=== PATIENT | female | born 1970 | race Caucasian/White ===

== ENCOUNTER 2024-06-24 21:07 | Inpatient (IN) | payer MEDICARE, MEDICAID, SELFPAY ==
--- NOTE | ~2024-06-24 | CT_ITS ---
CT of the Abdomen and Pelvis: Indication: Abdominal pain Technique: 2.5 mm axial scans were obtained through the abdomen and pelvis following intravenous adm inistration of 100 cc of Omnipaque 350. Dose reduction technique was used on this scan by utilizing a utomated exposure control and iterative reconstruction technique. The dose-length product (DLP) was 2 71.35 mGy-cm. Findings: Scans through the lung bases no subcapsular granulomas and bibasilar atelectasis, with min imal right pleural fluid.. The liver, pancreas, adrenals and kidneys are within normal limits. Probable mild gallbladder wall th ickening, nonspecific. Spleen is borderline enlarged, measuring 14 cm in length. No evidence of aorti c aneurysm. No lymphadenopathy. There is pneumoperitoneum. Possible wall thickening of the gastric antrum/duodenum, which may be the source, consider perforated peptic ulcer. Possible minimal wall thickening of the cecum/ascending col on. No bowel obstruction evident. Images through the pelvis were performed. Urinary bladder unremarkable. No pelvic mass seen. No ascit es. Bilateral L5 pars interarticularis defects are present. There are multiple subacute left rib fracture deformities, involving the left sixth-10th ribs. Impression: Pneumoperitoneum, compatible with bowel perforation. This is felt to be most likely related to perfor ated peptic ulcer or other distal gastritis/duodenitis. Correlate clinically. Consider endoscopy. Possible minimal wall thickening cecum/ascending colon. Mild gallbladder wall thickening, nonspecific, possibly reactive. Borderline splenomegaly. Reviewed, dictated and finalized at [facility]. Impression: Pneumoperitoneum, compatible with bowel perforation. This is felt to be most li yusra related to perforated peptic ulcer or other distal gastritis/duodenitis. C orrelate clinically. Consider endoscopy. Possible minimal wall thickening cecum/ascending colon. Mild gallbladder wall thickening, nonspecific, possibly reactive. Borderline splenomegaly.
--- NOTE | ~2024-06-24 | XR_ITS ---
EXAM: XR abdomen gastric tube insert DATE: 06/25/2024 18:03 HISTORY: NG tube . COMPARISON: CT abdomen and pelvis 06/24/2024. FINDINGS: Left basilar consolidation. NG tube, tip and side port over the stomach. Midline surgical sharath. The tip of a vascular catheter projects over the proximal right atrium. Normal bowel gas pat tern. No organomegaly. No abnormal abdominal calcification. Regional bones and soft tissues normal fo r age. IMPRESSION: Left basilar atelectasis/consolidation. NG tube in good position. Reviewed, dictated and finalized at location K.
--- NOTE | ~2024-06-24 | XR_ITS ---
XR chest 1V portable DATE: 06/24/2024 21:41 INDICATION: Cough. History of stage IV breast cancer. TECHNIQUE: Portable AP chest COMPARISON: None FINDINGS: Right Port-A-Cath catheter tip overlies the superior cavoatrial junction. Cardiomegaly. No hilar or mediastinal enlargement. Mild bilateral apical capping. Increased retrocardiac density on the left suggests left lower lobe infiltrate and/or atelectasis. Th ere is mild infiltrate or atelectasis in the right lower lung. No pulmonary vascular congestion or any significant pleural fluid collection or any pneumothorax is n oted. Osteopenia. IMPRESSION: Bilateral lower lung infiltrate or atelectasis is suggested, left greater than right Cardiomegaly Right Port-A-Cath catheter tip situated near superior cavoatrial junction Reviewed, dictated and finalized at location J. IMPRESSION: Bilateral lower lung infiltrate or atelectasis is suggested, left g reater than right Cardiomegaly Right Port-A-Cath catheter tip situated near superior cavoatrial junction
[2024-06-24 21:03] VITALS: BP 103/64; PULSE 73; RESP 22; TEMP 37; O2SAT 93
[2024-06-24 21:28] LABS: Basophils Percent Auto 0.3 % (0.2-1.2); Hematocrit 27.7 % (37.0-47.0); Hemoglobin 8.7 g/dL (12.0-15.0); Immature Granulocyte Absolute 0.19 K/mm3 (0.00-0.031); Immature Granulocyte Percent A 1.2 % (0-0.5); Immature Platelet Fraction Pct 14.1 % (0.9-11.2); Lymphocytes Absolute Auto 0.26 K/mm3 (0.9-3.2); Lymphocytes Percent Auto 1.6 % (18.3-44.2); Mean Corpuscular HGB Conc 31.4 g/dl (32-36); Mean Corpuscular Hemoglobin 27.1 pg (26-34); Mean Corpuscular Volume 86.3 fl (80-100); Mean Platelet Volume 13.8 fl (7.4-10.4); Monocytes Absolute Auto 0.6 K/mm3 (0.1-0.6); Monocytes Percent Auto 3.8 % (2.6-8.5); Neutrophils Absolute Auto 14.8 K/mm3 (1.3-6.7); Neutrophils Percent Auto 93.1 % (45.5-73.1); Nucleated Red Blood Cells Perc 0.1 % (0.0-0.2); Platelet Count Result 84 k/mm3 (150-375); Red Blood Count 3.21 M/mm3 (4.2-5.4); Red Cell Distribution Width 17.8 % (11.5-14.5); White Blood Count 15.9 K/mm3 (4.5-10.0)
--- NOTE | 2024-06-24 21:28 | ECG_ITS ---
Test Date: 2024-06-24 21:37:23 Measurements Intervals [place] Rate: 64 P: 44 NV: 124 QRS: 27 QRSD: 72 T: 49 QT: 376 QTc: 390 Interpretive Statements SINUS RHYTHM NORMAL ELECTROCARDIOGRAM No previous ECG available for comparison Electronically Signed On 06-25-2024 15:32:06 CDT by Josemanuel Slater M.D.
[2024-06-24 21:41] LABS: Alanine Aminotransferase 24 U/L (6-35); Albumin Level 2.7 g/dL (3.5-5.1); Alkaline Phosphatase 98 U/L (38-126); Anion Gap 5 mmol/L (4-12); Aspartate Amino Transferase 23 U/L (14-36); Bilirubin,Total 2.3 mg/dL (0.2-1.3); Blood Urea Nitrogen 18 mg/dL (7-17); Calcium 7.6 mg/dL (8.4-10.2); Carbon Dioxide 30 mmol/L (22-30); Chloride 97 mmol/L (98-107); Estimated CRCL calculation 97 ml/min; Estimated Glomerular Filt Rate > 60; Glucose 133 mg/dL (65-110); Lipase 169 U/L (23-300); Potassium 3.7 mmol/L (3.4-5.0); Sodium 132 mmol/L (137-145)
[2024-06-24] MEDS: SODIUM CHLORIDE 0.9% IV 1,000 ML 999 ML IV CONT (21:50)
[2024-06-24] MEDS: ONDANSETRON INJ 4 MG/2 ML VIAL IV PUSH (21:51)
[2024-06-24] MEDS: MORPHINE SULFATE (*CRX) 4 MG/ML INJ IV PUSH (21:51)
[2024-06-24 21:53] LABS: INR 1.2; Prothrombin Time 15.4 Seconds (11.1-14.7)
[2024-06-24 22:04] LABS: Magnesium 1.9 mg/dL (1.6-2.3)
[2024-06-24 22:09] LABS: Lactic Acid Reflex 1.2 mmol/L (0.7-2.0)
[2024-06-24 22:17] LABS: Troponin I < 0.012 ng/mL (0.000-0.034)
[2024-06-24 22:32] LABS: Procalcitonin 0.2 ng/mL
--- NOTE | 2024-06-24 23:08 | ED.GENADULT ---
HPI - General Adult General Chief complaint: Abdominal Pain Stated complaint: ABDOMINAL PAIN X SEVERAL DAYS Time Seen by Provider: 06/24/24 21:21 History of Present Illness HPI narrative: patient is a 53-year-old female who presents emergency department with chief complaint of abdominal pain. Patient has history of breast cancer with metastatic lesions to the liver and brain patient is still receiving chemotherapy at [facility]. Patient started having severe abdominal pain today and called EMS patient was transported by [facility] to our facility reports pain is not improved by anything and reports that it is not worsened by anything. Related Data Allergies Allergy/AdvReac Type Severity Reaction Status Date / Time Sulfa (Sulfonamide Allergy Rash Verified 06/24/24 21:14 Antibiotics) Review of Systems Review of Systems: A 10 system review of systems was completed on the patient and is negative except for what is stated in the HPI. Nursing and ancillary documentation was reviewed. Exam Narrative: GENERAL: Well-appearing, well-nourished, and in no acute distress. HEAD: Normocephalic, atraumatic. EYES: PERRLA and EOMI. ENT: Nares clear, no rhinorrhea or epistaxis. Mucous membranes moist. NECK: Supple. CHEST: Clear to auscultation. No respiratory distress. HEART: Regular rate and rhythm. No murmur heard. Normal peripheral pulses. ABDOMEN: Soft, Diffusely tender to palpation, nondistended, normal active bowel sounds. EXTREMITIES: Normal range of motion. No edema. SKIN: Warm, dry, no rash. NEURO: No focal deficits. Alert and oriented x3. PSYCH: Normal mood and affect. Course Vital Signs Vital signs: Vital Signs Temperature 37.0 C 06/24/24 21:03 Pulse Rate 73 06/24/24 21:03 Respiratory Rate 22 H 06/24/24 21:03 Blood Pressure 103/64 06/24/24 21:03 Pulse Oximetry 93 06/24/24 21:03 Oxygen Delivery Room Air 06/24/24 21:03 Temperature 37.0 C 06/24/24 21:03 Pulse Rate 70 06/24/24 23:35 Respiratory Rate 12 06/24/24 23:35 Blood Pressure 120/73 06/24/24 23:35 Pulse Oximetry 100 06/24/24 23:35 Oxygen Delivery Nasal Cannula 06/24/24 23:35 Oxygen Flow Rate 2 06/24/24 23:35 Medical Decision Making MDM Narrative Medical decision making narrative: differential diagnosis includes intra-abdominal infection, diverticulitis colitis, testicle perforation. UTI laboratory studies were obtained white count of 15.9 electrolytes showed a lactate of 1.2 bilirubin was 2.3 troponin was negative lipase was negative procalcitonin 0.2 urinalysis showed evidence of UTI CT scan read by [facility] showed free air concerning for perforated viscus the patient was started empirically on Zosyn case was discussed with Dr. Brandon of the general surgery service who will admit the patient and evaluate for possible surgical intervention Vital Signs Vital Signs: Vital Signs Temperature 37.0 C 06/24/24 21:03 Pulse Rate 73 06/24/24 21:03 Respiratory Rate 22 H 06/24/24 21:03 Blood Pressure 103/64 06/24/24 21:03 Pulse Oximetry 93 06/24/24 21:03 Oxygen Delivery Room Air 06/24/24 21:03 Temperature 37.0 C 06/24/24 21:03 Pulse Rate 70 06/24/24 23:35 Respiratory Rate 12 06/24/24 23:35 Blood Pressure 120/73 06/24/24 23:35 Pulse Oximetry 100 06/24/24 23:35 Oxygen Delivery Nasal Cannula 06/24/24 23:35 Oxygen Flow Rate 2 06/24/24 23:35 Lab Data 06/24/24 21:20 06/24/24 21:20 Labs: Lab Results 06/24/24 06/24/24 06/24/24 Range/Units 21:20 21:52 23:34 WBC 15.9 H (4.5-10.0) K/mm3 RBC 3.21 L (4.2-5.4) M/mm3 Hgb 8.7 L (12.0-15.0) g/dL Hct 27.7 L (37.0-47.0) % MCV 86.3 (80-100) fl MCH 27.1 (26-34) pg MCHC 31.4 L (32-36) g/dl RDW 17.8 H (11.5-14.5) % Plt Count 84 L (150-375) k/mm3 MPV 13.8 H (7.4-10.4) fl Immature Gran % (Auto) 1.2 H (0-0.5) % Neut % (Auto)
[2024-06-24] MEDS: HYDROmorphone HCL INJ (*CRX) 1 MG/ML SYR IV PUSH (23:33)
[2024-06-24 23:35] VITALS: BP 120/73; PULSE 70; RESP 12; O2SAT 100
[2024-06-24 23:51] LABS: Add Urine Microscopic? YES; Appearance Urine Cloudy (Clear); Bacteria Urine 4+ /hpf; Bilirubin Urine Negative (Negative); Blood Urine 1+ (Negative); Color Urine Yellow (Yellow); Glucose Urine UA Negative (Negative); Ketones Urine Negative (Negative); Leukocyte Esterase Ur 2+ LEU/UL (Negative); Nitrate Urine Negative (Negative); Protein Urine 1+ mg/dL (Negative); Specific Grav Ur 1.045 (1.001-1.035); Squamous Epithelial Cell Urine None Seen /hpf (Few); WBC Urine >100 /hpf (0-3); pH Urine 6.5 (5.0-9.0)
[2024-06-25] VITALS (25 sets, daily range): BP systolic 98–120; BP diastolic 50–68; PULSE 60–85; RESP 12–94; TEMP 35.9–36.9; O2SAT 93–100; BMI 18.8
[2024-06-25] MEDS: PIPERACILLN/TAZ 3.375GM/NS50ML 3.375 GM/50 ML BAG IVPB ×3 (01:55→20:25)
--- NOTE | 2024-06-25 03:05 | PC.NURSE ---
This patient, Danitza Anderson, was admitted to IMU Room 213-01. Patient/family oriented to hospital policies and general routines including ID bracelet, bed and alarms, visiting hours, pain management, procedures, bathroom and other care routines, personal items, smoking policy, room service/diet, and visiting hours. Information on how to activate the Rapid Response Team has been discussed. Patient/Family are encouraged to report perceived risks to care and to ask questions if they do not understand what they are told or what they should do.
[2024-06-25] MEDS: SODIUM CHLORIDE 0.9% IV 1,000 ML 125 ML IV CONT (03:42)
[2024-06-25 08:37] LABS: Basophils Absolute Auto 0.1 K/mm3 (0.0-0.1); Basophils Percent Auto 0.3 % (0.2-1.2); Eosinophils Absolute Auto 0.2 K/mm3 (0-0.3); Eosinophils Percent Auto 1.3 % (0-4.4); Hematocrit 31.8 % (37.0-47.0); Hemoglobin 9.6 g/dL (12.0-15.0); Immature Granulocyte Absolute 0.16 K/mm3 (0.00-0.031); Immature Granulocyte Percent A 0.9 % (0-0.5); Immature Platelet Fraction Pct 15.6 % (0.9-11.2); Lymphocytes Absolute Auto 0.24 K/mm3 (0.9-3.2); Lymphocytes Percent Auto 1.4 % (18.3-44.2); Mean Corpuscular HGB Conc 30.2 g/dl (32-36); Mean Corpuscular Hemoglobin 27.1 pg (26-34); Mean Corpuscular Volume 89.8 fl (80-100); Monocytes Absolute Auto 0.6 K/mm3 (0.1-0.6); Monocytes Percent Auto 3.3 % (2.6-8.5); Neutrophils Absolute Auto 15.9 K/mm3 (1.3-6.7); Neutrophils Percent Auto 92.8 % (45.5-73.1); Platelet Count Result 79 k/mm3 (150-375); Red Blood Count 3.54 M/mm3 (4.2-5.4); Red Cell Distribution Width 17.8 % (11.5-14.5); White Blood Count 17.2 K/mm3 (4.5-10.0)
--- NOTE | 2024-06-25 08:41 | PM.IMHP ---
H&P: HPI History of Present Illness Date/Time: 06/25/24 08:41 Chief Complaint: Abdominal pain Narrative: This is a 53-year-old woman undergoing treatment for metastatic breast cancer, who was brought into the ED via EMS for abdominal pain x 1 day. The patient is a fair historian and her history is also obtained by discussion with her daughter via phone with the patient's permission. The patient reports having a sudden onset generalized abdominal pain starting yesterday. She denies nausea, vomiting, fever, chills, or any other complaints. She denies having this pain in the past. Due to her progressive pain, she was brought into the ED via EMS for evaluation. [place] [address], hemoglobin 8.7, hematocrit 27.7, platelets 97026, PT 15.4, INR 1.2, sodium 132, BUN 18, creatinine 0.5, lactic acid 1.2, calcium 7.6, total bilirubin 2.3 with other LFTs normal, troponin negative, albumin 2.7, total protein 5.0, procalcitonin 0.2. UA grossly abnormal with urine culture pending. Chest x-ray showed bilateral lower lung infiltrate or atelectasis, cardiomegaly, and right Port-A-Cath tip near superior cavoatrial junction. CT scan of the abdomen and pelvis showed pneumoperitoneum, compatible with bowel perforation. This is felt to be most likely related to perforated gastric ulcer or distal gastritis/duodenitis. Also seen is possible minimal wall thickening of the cecum/ascending colon, mild gallbladder wall thickening that is nonspecific and possibly reactive, and borderline splenomegaly. Our service was consulted by the ED physician and she was admitted in this setting. She was started on IV antibiotics, IV fluids, analgesics, and bowel rest. She is now seen on the medical floor. She is still having generalized abdominal pain improved after the IV morphine. Denies any flatus or bowel movement recently. She cannot recall her last bowel movement, but reports recent constipation. Denies any previous abdominal surgeries. No known history of ulcers. Lifelong nonsmoker. Denies any recent frequent NSAID use. The patient has been undergoing treatment for metastatic breast cancer since 2019. She reports metastasis to her liver and brain. She has been on chemotherapy and receiving infusions every 3 weeks. Her last chemotherapy treatment was about 2 weeks ago. She has a right chest Port-A-Cath in place. She also was hospitalized at [facility] for seizures after having a fall at home that was felt to be related to a seizure. She was found to have advancement of her cancer and brain metastasis, and was discharged home with follow-up with Radiation Oncology. She has had 1 radiation treatment and was scheduled to have radiation again today. During that hospitalization, she was also started on steroids and was discharged on dexamethasone every 6 hours per her daughter. She has been taking the steroids routinely. Over the past few months, she has had a poor appetite and frequent nausea with poor oral intake. The patient believes she has lost about 20 lb in the last few months, and her daughter reports about 30 lb weight loss in the last 3 months. She also reports electrolyte imbalances and starting potassium and magnesium replacement that she has been taking [id number]. I requested nursing verified doses and put this into her home medication list. No labs ordered for this morning, therefore I placed some orders today. She has a type and screen resulted today. Review of Systems Review of Systems: All systems reviewed & are unremarkable except as noted in HPI and below [facility] Past Medical History Medical History Breast cancer metastasized to brain Seizure Surgical History Surgical History No pertinent past surgical history Family History Family History Father Conges
[2024-06-25 08:49] LABS: Anion Gap 4 mmol/L (4-12); Blood Urea Nitrogen 21 mg/dL (7-17); Calcium 7.8 mg/dL (8.4-10.2); Carbon Dioxide 30 mmol/L (22-30); Chloride 100 mmol/L (98-107); Estimated CRCL calculation 89 ml/min; Estimated Glomerular Filt Rate > 60; Glucose 102 mg/dL (65-110); Potassium 3.8 mmol/L (3.4-5.0); Sodium 134 mmol/L (137-145)
[2024-06-25 08:56] LABS: Prealbumin 7.8 mg/dL (17.6-36.0)
[2024-06-25] MEDS: PANTOPRAZOLE SODIUM IV 40 MG VIAL IV PUSH (09:13)
[2024-06-25] MEDS: MORPHINE SULFATE (*CRX) 4 MG/ML INJ IV PUSH (10:27)
--- NOTE | 2024-06-25 11:01 | WPDHPUPDATE1 ---
History and Physical Update Update Date/Time: 06/25/24 11:01 History and Physical has been reviewed, including an updated exam of the patient. There are NO changes in the patient's condition. Risks, benefits, and alternatives have been discussed and questions answered. Patient agrees to proceed with procedure.
--- NOTE | 2024-06-25 11:06 | PC.NURSE ---
To OR via bed, IV patent.
--- NOTE | 2024-06-25 12:18 | WPDANESEPPF ---
Anes - Initial Pre Proc Eval Procedure: Operation Date: 06/25/24 12:30 Proposed Procedures p Exploratory Laparotomy For Bowel Perforation - Mansoor Brandon MD Date/Time: 06/25/24 12:18 Surgeon: Mansoor Brandon MD Pre Op Diagnosis: Intestinal perforation abdominal pain Patient Data Age: 53 Gender: F Height: 1.65 m Weight: 51.4 kg Last Vital Signs Temp 97.2 F L 06/25/24 11:23 Pulse 78 06/25/24 11:23 Resp 16 06/25/24 11:23 BP 104/51 L 06/25/24 11:23 Pulse Ox 94 06/25/24 11:23 O2 Del Method Room Air 06/25/24 11:23 O2 Flow Rate 2 06/25/24 03:30 Allergies Allergy/AdvReac Type Severity Reaction Status Date / Time amoxicillin Allergy Unknown Verified 06/25/24 03:42 Sulfa (Sulfonamide Allergy Rash Verified 06/24/24 21:14 Antibiotics) TB meds Allergy Unknown Uncoded 06/25/24 03:42 Home Medications Medication Instructions Recorded Confirmed Type carvedilol 3.125 mg tablet 3.125 mg PO BID 06/25/24 06/25/24 History cholecalciferol (vitamin D3) 125 125 mcg PO DAILY 06/25/24 06/25/24 History mcg (5,000 unit) capsule levetiracetam 500 mg tablet 1,000 mg PO BID 06/25/24 06/25/24 History lidocaine-prilocaine 2.5 %-2.5 % 1 applic topical QID PRN Mild Pain 06/25/24 06/25/24 History topical cream (Scale Score 1-4) memantine 5 mg tablet 5 mg PO BID 06/25/24 06/25/24 History Laboratory Tests 06/24/24 06/24/24 06/24/24 21:20 21:52 23:34 WBC 15.9 H K/mm3 (4.5-10.0) RBC 3.21 L M/mm3 (4.2-5.4) Hgb 8.7 L g/dL (12.0-15.0) Hct 27.7 L % (37.0-47.0) MCV 86.3 fl (80-100) MCH 27.1 pg (26-34) MCHC 31.4 L g/dl (32-36) RDW 17.8 H % (11.5-14.5) Plt Count 84 L k/mm3 (150-375) MPV 13.8 H fl (7.4-10.4) Immature Gran % (Auto) 1.2 H % (0-0.5) Neut % (Auto) 93.1 H % (45.5-73.1) Lymph % (Auto) 1.6 L % (18.3-44.2) Clinch % (Auto) 3.8 % (2.6-8.5) Eos % (Auto) 0.0 % (0-4.4) Baso % (Auto) 0.3 % (0.2-1.2) Lymph # (Auto) 0.26 L K/mm3 (0.9-3.2) Clinch # (Auto) 0.6 K/mm3 (0.1-0.6) Eos # (Auto) 0.0 K/mm3 (0-0.3) Baso # (Auto) 0.0 K/mm3 (0.0-0.1) Abs Immat Gran (auto) 0.19 H K/mm3 (0.00-0.031) Absolute Neuts (auto) 14.8 H K/mm3 (1.3-6.7) Absolute Nucleated RBC 0.020 H K/mm3 (0.0-0.012) Nucleated RBC % 0.1 % (0.0-0.2) % Immature Plt Fraction 14.1 H % (0.9-11.2) PT 15.4 H Seconds (11.1-14.7) INR 1.2 Sodium 132 L mmol/L (137-145) Potassium 3.7 mmol/L (3.4-5.0) Chloride 97 L mmol/L (98-107) Carbon Dioxide 30 mmol/L (22-30) Anion Gap 5 mmol/L (4-12) BUN 18 H mg/dL (7-17) Creatinine 0.50 L mg/dL (0.7-1.0) Estim Creat Clear Calc 97 ml/min Estimated GFR > 60 (59 - ) Glucose 133 H mg/dL (65-110) Lactic Acid 1.2 mmol/L (0.7-2.0) Calcium 7.6 L mg/dL (8.4-10.2) Magnesium 1.9 mg/dL (1.6-2.3) Total Bilirubin 2.3 H mg/dL (0.2-1.3) AST 23 U/L (14-36) ALT 24 U/L (6-35) Alkaline Phosphatase 98 U/L (38-126) Troponin I < 0.012 ng/mL (0.000-0.034) Total Protein 5.0 L g/dL (6.3-8.2) Albumin 2.7 L g/dL (3.5-5.1) Prealbumin Lipase 169 U/L (23-300) Procalcitonin 0.2 ng/mL Beta HCG, Quant Urine Color Yellow (Yellow) Urine Appearance Cloudy H (Clear) Urine pH 6.5 (5.0-9.0) Ur Specific [place] 1.045 H (1.001-1.035) Urine Protein 1+ H mg/dL (Negative) Urine Glucose (UA) Negative mg/dL (Negative) Urine Ketones Negative mg/dL (Negative) Ur Blood (Man
[2024-06-25 12:39] LABS: Beta HCG Quantitative < 2.39 mIU/ML
--- NOTE | 2024-06-25 12:51 | PC.NURSE ---
Suzy RN from Dr. Pierson's office, reports Dr. Pierson (cell [phone]) would like to do a provider to provider call to Dr. Brandon in regards to radiation treatment after exploratory lap. Reports they would like to keep pt on current radiation schedule despite procedure. Suzy confirms pt is currently taking Dexamethasone 2 mg q 6 hr, however, she us unaware of when pt began this regimen as it was started from provider at [facility]. Reports brain MRI was completed 06/07/2024 and is likely when steroid was started. Previous to hospitalization at [facility] pt was taking Dex 8 mg on day 2 and 3 post radiation tx on a 3 week cycle. Office number for Dr. Orr (Oncologist) is [phone]. Yoli, daughter, reports pt was seen at [facility] for sz and was started on Dexamethasone 2mg q6hr on 06/06/2024. Daughter also reports she discovered she has only been giving pt 500 mg of Keppra vs 1000 mg BID. Pt also takes OTC potassium citrate 99mg BID, magnesium glycinate 100 mg BID.
--- NOTE | 2024-06-25 13:38 | PM.IMCN ---
Assessment and Plan Assessment and plan (1) Seizure: Code(s): R56.9 - Unspecified convulsions Status: Chronic (2) Thrombocytopenia: Code(s): D69.6 - Thrombocytopenia, unspecified Status: Acute (3) Anemia: Code(s): D64.9 - Anemia, unspecified Status: Acute (4) Bowel perforation: Code(s): K63.1 - Perforation of intestine (nontraumatic) Status: Acute (5) Electrolyte abnormality: Code(s): E87.8 - Other disorders of electrolyte and fluid balance, not elsewhere classified Status: Acute (6) Breast cancer metastasized to brain: Code(s): C50.919 - Malignant neoplasm of unspecified site of unspecified female breast; C79.31 - Secondary malignant neoplasm of brain Status: Chronic (7) Duodenal ulcer: Code(s): K26.9 - Duodenal ulcer, unspecified as acute or chronic, without hemorrhage or perforation Status: Acute Plan Danitza Anderson is a 53 year old female who presents to the ED with abdominal pain over the past 1 day. Sudden in onset. No nausea vomiting fever chills. Progressively getting worse. Presented to the ED earlier today for evaluation. Laboratory evaluation showed WBC of 15 K hemoglobin of 8.7 hematocrit 27 platelet of 84,000. Lactic normal. Chem panel with total bilirubin of 2.3 mild hyponatremia 132. Chest x-ray revealed bilateral lower lung infiltrate or atelectasis cardiomegaly and right Port-A-Cath tip near superior cavoatrial junction. CT scan of the abdomen pelvis showed pneumoperitoneum compatible with bowel perforation. [place] to be related to perforated gastric ulcer oral distal gastritis/duodenitis. There was also minimal wall thickening of the cecum/ascending colon mild gallbladder wall thickening which is nonspecific and possibly reactive and borderline splenomegaly. History of metastatic breast cancer since 2019 with metastasis to her liver and brain had been on chemotherapy every 3 weeks. Last chemotherapy about 2 weeks ago. Right chest Port-A-Cath in place. Recently she was admitted with seizures to [facility]. She was found to have worsening metastasis to her brain and had been following up with radiation oncology and received radiation treatment. During that hospitalization she was also started on steroids which she has been taking regularly. Since admission general surgery has been consulted and have been taken to the OR for exploratory laparotomy. Hospitalist team consulted for medical management. Perforated viscus suspected related to gastritis/duodenitis. General surgery on board plan for emergent exploratory laparotomy. To have perforated duodenal ulcer which was stone. Continue current postop orders History of metastatic breast cancer currently undergoing radiation therapy and chemotherapy. Follow-up with Oncology after discharge Seizures on Keppra will be switched to IV while NPO Possible gastritis/duodenitis PPI has been started b.i.d. hold dexamethasone leukocytosis could be reactive however urinalysis was positive for UTI on Zosyn IV follow urine culture. Blood culture in process Thrombocytopenia continue to monitor likely due to chemotherapy Anemia moderate no signs of bleeding. Continue to monitor postoperatively DVT prophylaxis SCDs for now hold Lovenox due to thrombocytopenia Code status full code HPI Date of Consult Consult date: 06/25/24 Requesting Physician: Mansoor Brandon MD Primary Care Provider: Elvis Reza, Consult Narrative Narrative: Danitza Anderson is a 53 year old female who presents to the ED with abdominal pain over the past 1 day. Sudden in onset. No nausea vomiting fever chills. Progressively getting worse. Presented to the ED earlier today for evaluation. Laboratory evaluation showed WBC of 15 K hemoglobin of 8.7 hematocrit 27 platelet of 84,000. Lactic normal. Chem panel with total bilirubin of 2.3 mild hyponatremia 132. Chest x-ray revealed bilateral lowe
[2024-06-25] MEDS: LACTATED RINGERS 1,000 ML 30 ML IV CONT ×2 (14:13)
--- NOTE | 2024-06-25 14:51 | W.PM.PROC2 ---
Procedure Note - Detailed Date of Procedure 06/25/24 Pre-op Diagnosis Bowel perforation Post-op Diagnosis Other (Perforated duodenal ulcer) Procedure Performed Oversew perforated duodenal ulcer, omentoplasty Surgeon Mansoor Brandon MD Outside Installation Machinist Taryn Allen RN Anesthesia General Indications Patient is is receiving chemotherapy for metastatic breast cancer and also radiation therapy for intracranial metastases. She came to our emergency room with abdominal pain and was found to have pneumoperitoneum. The source of the pneumoperitoneum is not clear but is suspected to be a perforated ulcer. She has been on high dose of dexamethasone for quite some time. She is taken to surgery now for exploration for perforated bowel. Findings She had a perforated duodenal ulcer just past the bulb. No other significant findings were noted. Description of Procedure Patient was taken to surgery and induced into general anesthesia. The abdomen is prepped and draped. A midline incision was made and dissection was carried down through the midline fashion into the peritoneal cavity. There was obvious peritoneal green stained fluid in the abdomen. We suctioned this away and then looked at the stomach and the duodenum. The duodenal ulcer was well defined. There was no need for a Kirk maneuver to expose the duodenal ulcer further. Nasogastric tube was positioned appropriately in the stomach. 3-0 silk Lembert sutures were used to over sew the ulcer. We then irrigated and suctioned any residual fluid from the abdomen until the irrigant was removed relatively clear. I then divided some of the omentum so that I had a tension-free piece of healthy omentum. I used mattress sutures of 3-0 Vicryl to secure this omentum to the area on the duodenum where the ulcer had been oversewn. We again inspected the abdomen in and checked for any residual GI spillage. There was none to be found. We then closed the abdomen with running bidirectional 1. PDS suture. A few subcutaneous skin stitches were placed with 3-0 Vicryl. The skin was then closed with sharath. Xeroform gauze fluffs and Medipore tape were used to dress the wound. Patient was awakened, extubated and taken to recovery in good condition. Estimated Blood Loss -5 Urine Output 250 Drains Yes (Nasogastric tube) Packing No Pathology None sent Complications None Condition Stable Disposition PACU [facility] Billing Surgery - Charge Forward: Surgery Billing (Oversew (suture closure) perforated duodenal ulcer, omentoplasty.)
--- NOTE | 2024-06-25 16:10 | PC.NURSE ---
This patient, Danitza Anderson, was received from OR on 06/25/24 at 1610.
[2024-06-25] MEDS: LACTATED RINGERS 1,000 ML 100 ML IV CONT (16:45)
[2024-06-25] MEDS: levETIRAcetam 1000MG/NACL100ML 1,000 MG/100 ML BAG 400 MG IVPB (21:23)
--- NOTE | 2024-06-25 22:45 | PC.NURSE ---
This patient, Danitza Anderson, was transferred to [facility] on 06/25/24 at 2245. Personal belongings sent with patient. Report given to ROLAND Robert. Appropriate documentation sent with patient.
[2024-06-26] MEDS: PIPERACILLN/TAZ 3.375GM/NS50ML 3.375 GM/50 ML BAG IVPB ×4 (02:37→20:14)
[2024-06-26 04:00] VITALS: BP 110/51; PULSE 80; RESP 18; TEMP 36.5; O2SAT 98
[2024-06-26 05:24] LABS: Basophils Percent Auto 0.2 % (0.2-1.2); Hematocrit 28.8 % (37.0-47.0); Hemoglobin 8.7 g/dL (12.0-15.0); Immature Granulocyte Absolute 0.08 K/mm3 (0.00-0.031); Immature Granulocyte Percent A 0.8 % (0-0.5); Immature Platelet Fraction Pct 12.2 % (0.9-11.2); Lymphocytes Absolute Auto 0.36 K/mm3 (0.9-3.2); Lymphocytes Percent Auto 3.4 % (18.3-44.2); Mean Corpuscular HGB Conc 30.2 g/dl (32-36); Mean Corpuscular Hemoglobin 27.2 pg (26-34); Monocytes Absolute Auto 0.4 K/mm3 (0.1-0.6); Monocytes Percent Auto 3.3 % (2.6-8.5); Neutrophils Absolute Auto 9.7 K/mm3 (1.3-6.7); Neutrophils Percent Auto 92.3 % (45.5-73.1); Platelet Count Result 56 k/mm3 (150-375); Red Cell Distribution Width 18.3 % (11.5-14.5); White Blood Count 10.5 K/mm3 (4.5-10.0)
[2024-06-26 05:40] LABS: Alanine Aminotransferase 19 U/L (6-35); Albumin Level 2.3 g/dL (3.5-5.1); Alkaline Phosphatase 84 U/L (38-126); Anion Gap 5 mmol/L (4-12); Aspartate Amino Transferase 21 U/L (14-36); Bilirubin,Total 3.1 mg/dL (0.2-1.3); Blood Urea Nitrogen 21 mg/dL (7-17); Calcium 7.7 mg/dL (8.4-10.2); Carbon Dioxide 30 mmol/L (22-30); Chloride 102 mmol/L (98-107); Estimated CRCL calculation 76 ml/min; Estimated Glomerular Filt Rate > 60; Glucose 106 mg/dL (65-110); Potassium 3.4 mmol/L (3.4-5.0); Sodium 137 mmol/L (137-145)
[2024-06-26 05:44] VITALS: BP 110/51; PULSE 80; RESP 18; TEMP 36.5; O2SAT 98
[2024-06-26 05:54] LABS: Anisocytosis 2+; Ovalocytes 1+; Platelet Estimate Decreased (Adequate)
[2024-06-26 05:55] LABS: Burr Cells 1+; Schistocytes 1+
--- NOTE | 2024-06-26 07:13 | P.PNIM_ITS ---
Progress Note: A&P Assessment and Plan (1) Pneumoperitoneum: Code(s): K66.8 - Other specified disorders of peritoneum Status: Acute (2) Breast cancer metastasized to brain: Code(s): C50.919 - Malignant neoplasm of unspecified site of unspecified female breast; C79.31 - Secondary malignant neoplasm of brain Status: Chronic (3) Anemia: Code(s): D64.9 - Anemia, unspecified Status: Acute (4) Thrombocytopenia: Code(s): D69.6 - Thrombocytopenia, unspecified Status: Acute (5) Malnutrition: Qualifiers: Malnutrition type: protein-calorie malnutrition Protein-calorie malnutrition severity: mild Qualified Code(s): E44.1 - Mild protein-calorie malnutrition Code(s): E46 - Unspecified protein-calorie malnutrition Status: Acute (6) UTI (urinary tract infection): Code(s): N39.0 - Urinary tract infection, site not specified Status: Acute (7) Bacteremia: Code(s): R78.81 - Bacteremia Status: Acute (8) Seizure: Code(s): R56.9 - Unspecified convulsions Status: Chronic (9) Bowel perforation: Code(s): K63.1 - Perforation of intestine (nontraumatic) Status: Acute Plan Pneumoperitoneum/Bowel Perforation * Emergent surgical exploratory laparatomy * secondary to gastric/duodenal ulcer from Chemotherapy/steroid use * Zosyn * Pain control * NPO advance per Surgery * WBC trending down * Antiemetics * Antipyretics * IV fluids * PPI * Accu-Cheks q.6 well NPO * Hypoglycemic protocol * Encourage ambulation Bacteremia * Gram-negative bacilli * Zosyn * de-escalate per cultures * follow-up cultures 48hrs for clearance UTI * Leukocyte+ with bacteria * on zosyn * follow cultures Seizures * Keppra IV unitl tolerating oral intake then transition to home Keppra PO * Seizure precautions * Ativan p.r.n. for seizures Metastatic breast and brain cancer * Currently on chemotherapy * follow-up with oncology outpatient Mild malnutrition due to poor protein and caloric intake * Secondary to metastatic cancer * Dietitian consulted * Recommend protein shakes once patient is tolerating oral intake Anemia/thrombocytopenia * HGb stable * PLT 56 * Likely secondary to patient's metastatic cancer and chemotherapy * Transfuse PRBC <7.0 * Transfuse PLT <20 * Daily CBC Code status: Full code per patient DVT prophylaxis: SCD's (Anemia/thrombocytopenia) Stress ulcer prophylaxis: Protonix 40 daily PT/OT notes: PT/OT Pending Disposition: Patient admitted to the medical unit with pneumoperitoneum post emergent surgical intervention tolerated procedure well eating ice chips at this time bacteremia with Gram-negative bacilli. Will advance diet per surgery return of bowel function. Patient lives at home with daughter who is her finish saw operator. PT OT pending for recs patient is deconditioned may need rehab services before returning home. Time Spent With Patient Time with patient: 15 - 25 minutes Subjective Date/time seen: 06/26/24 07:13 Interval history: Consult: Medical Chart Danitza Anderson is a 53 year old female who presents to the ED with abdominal p ain over the past 1 day. Sudden in onset. No nausea vomiting fever chills. Progressively getting worse. Presented to the ED earlier today for evaluation. Laboratory evaluation showed WBC of 15 K hemoglobin of 8.7 hematocrit 27 platelet of 84,
--- NOTE | 2024-06-26 07:13 | PM.IMPN ---
Progress Note: A&P Assessment and Plan (1) Pneumoperitoneum: Code(s): K66.8 - Other specified disorders of peritoneum Status: Acute (2) Breast cancer metastasized to brain: Code(s): C50.919 - Malignant neoplasm of unspecified site of unspecified female breast; C79.31 - Secondary malignant neoplasm of brain Status: Chronic (3) Anemia: Code(s): D64.9 - Anemia, unspecified Status: Acute (4) Thrombocytopenia: Code(s): D69.6 - Thrombocytopenia, unspecified Status: Acute (5) Malnutrition: Qualifiers: Malnutrition type: protein-calorie malnutrition Protein-calorie malnutrition severity: mild Qualified Code(s): E44.1 - Mild protein-calorie malnutrition Code(s): E46 - Unspecified protein-calorie malnutrition Status: Acute (6) UTI (urinary tract infection): Code(s): N39.0 - Urinary tract infection, site not specified Status: Acute (7) Bacteremia: Code(s): R78.81 - Bacteremia Status: Acute (8) Seizure: Code(s): R56.9 - Unspecified convulsions Status: Chronic (9) Bowel perforation: Code(s): K63.1 - Perforation of intestine (nontraumatic) Status: Acute Plan Pneumoperitoneum/Bowel Perforation Emergent surgical exploratory laparatomy secondary to gastric/duodenal ulcer from Chemotherapy/steroid use Zosyn Pain control NPO advance per Surgery WBC trending down Antiemetics Antipyretics IV fluids PPI Accu-Cheks q.6 well NPO Hypoglycemic protocol Encourage ambulation Bacteremia Gram-negative bacilli Zosyn de-escalate per cultures follow-up cultures 48hrs for clearance UTI Leukocyte+ with bacteria on zosyn follow cultures Seizures Keppra IV unitl tolerating oral intake then transition to home Keppra PO Seizure precautions Ativan p.r.n. for seizures Metastatic breast and brain cancer Currently on chemotherapy follow-up with oncology outpatient Mild malnutrition due to poor protein and caloric intake Secondary to metastatic cancer Dietitian consulted Recommend protein shakes once patient is tolerating oral intake Anemia/thrombocytopenia HGb stable PLT 56 Likely secondary to patient's metastatic cancer and chemotherapy Transfuse PRBC <7.0 Transfuse PLT <20 Daily CBC Code status: Full code per patient DVT prophylaxis: SCD's (Anemia/thrombocytopenia) Stress ulcer prophylaxis: Protonix 40 daily PT/OT notes: PT/OT Pending Disposition: Patient admitted to the medical unit with pneumoperitoneum post emergent surgical intervention tolerated procedure well eating ice chips at this time bacteremia with Gram-negative bacilli. Will advance diet per surgery return of bowel function. Patient lives at home with daughter who is her caster helper. PT OT pending for recs patient is deconditioned may need rehab services before returning home. Time Spent With Patient Time with patient: 15 - 25 minutes Subjective Date/time seen: 06/26/24 07:13 Interval history: Consult: Medical Chart Danitza Anderson is a 53 year old female who presents to the ED with abdominal pain over the past 1 day. Sudden in onset. No nausea vomiting fever chills. Progressively getting worse. Presented to the ED earlier today for evaluation. Laboratory evaluation showed WBC of 15 K hemoglobin of 8.7 hematocrit 27 platelet of 84,000. Lactic normal. Chem panel with total bilirubin of 2.3 mild hyponatremia 132. Chest x-ray revealed bilateral lower lung infiltrate or atelectasis cardiomegaly and right Port-A-Cath tip near superior cavoatrial junction. CT scan of the abdomen pelvis showed pneumoperitoneum compatible with bowel perforation. [place] to be related to perforated gastric ulcer oral distal gastritis/duodenitis. There was also minimal wall thickening of the cecum/ascending colon mild gallbladder wall thickening which is nonspecific and possibly reactive and bord
[2024-06-26 08:00] VITALS: BP 99/42; PULSE 74; RESP 16; TEMP 36.6; O2SAT 96
[2024-06-26] MEDS: PANTOPRAZOLE SODIUM IV 40 MG VIAL IV PUSH (08:58)
[2024-06-26] MEDS: levETIRAcetam 1000MG/NACL100ML 1,000 MG/100 ML BAG 400 MG IVPB ×2 (09:30→21:15)
[2024-06-26 11:58] LABS: Glucose Point of Care 79 mg/dl (65-105)
[2024-06-26 12:00] VITALS: BP 94/42; PULSE 77; RESP 18; TEMP 37.1; O2SAT 96
--- NOTE | 2024-06-26 12:52 | WPDANESPN ---
Anes - Prog Note Post-Op Date/Time: 06/26/24 12:52 Cardiovascular status: normal Respiratory status: normal Airway patency: baseline Mental status: baseline Post-Op hydration status: normal Vital Signs: Last Vital Signs Temp 37.1 C 06/26/24 12:00 Pulse 77 06/26/24 12:00 Resp 18 06/26/24 12:00 BP 94/42 L 06/26/24 12:00 Pulse Ox 96 06/26/24 12:00 O2 Del Method Room Air 06/26/24 08:00 O2 Flow Rate 5 06/25/24 15:00 Pain Score (VAS): 310 I/O: Intake & Output 06/25/24 06/26/24 06/26/24 23:59 07:59 15:59 Intake Total 397 28 3612 Output Total 500 200 Balance -290 -150 1030 Laboratory Tests 06/26/24 04:51 06/26/24 04:51 06/26/24 06/26/24 04:51 11:50 WBC 10.5 H RBC 3.20 L Hgb 8.7 L Hct 28.8 L MCV 90.0 MCH 27.2 MCHC 30.2 L RDW 18.3 H Plt Count 56 L MPV TNP Immature Gran % (Auto) 0.8 H Neut % (Auto) 92.3 H Lymph % (Auto) 3.4 L [place] % (Auto) 3.3 Eos % (Auto) 0.0 Baso % (Auto) 0.2 Lymph # (Auto) 0.36 L [place] # (Auto) 0.4 Eos # (Auto) 0.0 Baso # (Auto) 0.0 Abs Immat Gran (auto) 0.08 H Absolute Neuts (auto) 9.7 H Absolute Nucleated RBC 0.000 Nucleated RBC % 0.0 Platelet Estimate Decreased % Immature Plt Fraction 12.2 H Anisocytosis 2+ Ovalocytes 1+ Lasha Cells 1+ Schistocytes 1+ Sodium 137 Potassium 3.4 Chloride 102 Carbon Dioxide 30 Anion Gap 5 BUN 21 H Creatinine 0.60 L Estim Creat Clear Calc 76 Estimated GFR > 60 Glucose 106 POC Capillary Glucose 79 Calcium 7.7 L Total Bilirubin 3.1 H AST 21 ALT 19 Alkaline Phosphatase 84 Total Protein 5.0 L Albumin 2.3 L Microbiology 06/25/24 04:15 Blood Blood Culture - Preliminary Gram negative bacilli isolated 06/25/24 04:15 Blood Blood Culture - Preliminary Gram negative bacilli isolated 06/25/24 02:02 Blood Blood Culture - Preliminary Gram negative bacilli isolated 06/25/24 02:02 Blood Blood Culture - Preliminary Gram negative bacilli isolated Post-procedural complaints: none Patient Feedback: Patient satisfied with anesthetic care.
[2024-06-26 13:09] LABS: Partial Thromboplastin Time 43.1 Seconds (22.3-36.8)
[2024-06-26 13:10] LABS: Transferrin 191 mg/dL (206-381)
[2024-06-26] MEDS: FAT EMULSIONS IV 20% 250 ML 20.83 ML IVPB (13:51)
[2024-06-26] MEDS: AMINO ACIDS 5%/D15W/E-LYTES/CA 2,000 ML with MULTIVITAMINS-12 INJ VIAL 1 2.5 ML, MULTIV... 40 ML IV CONT (13:51)
[2024-06-26] MEDS: CENTRAL LINE FLUSH 10 ML IV PUSH ×2 (13:51→20:14)
[2024-06-26 13:57] VITALS: BMI 20.8
[2024-06-26 16:00] VITALS: BP 102/47; PULSE 78; RESP 18; TEMP 37.1; O2SAT 93
[2024-06-26] MEDS: HYDROCORTISONE SODIUM SUCCINATE 100 MG/2 ML VIAL IV PUSH ×2 (16:18→20:14)
--- NOTE | 2024-06-26 17:16 | PC.NURSE ---
Per deedee Perea to access port-a-cath to begin TPN. Accessed at 1240 and TPN and lipids started
--- NOTE | 2024-06-26 18:11 | PM.PNGS ---
Progress Note: A&P Assessment and Plan (1) Bowel perforation: Code(s): K63.1 - Perforation of intestine (nontraumatic) Status: Acute Assessment and Plan: Found to have a perforated duodenal ulcer s/p oversewing, omentoplasty. She is doing well POD1. Continue NG tube decompression, bowel rest, and IV fluids. Continue IV antibiotics. (2) Breast cancer metastasized to brain: Code(s): C50.919 - Malignant neoplasm of unspecified site of unspecified female breast; C79.31 - Secondary malignant neoplasm of brain Status: Chronic Assessment and Plan: I spoke with her Radiation Oncologist at [facility], Dr. Pierson. We would expect the patient to be hospitalized for at least a week, and while she is admitted here, it would prolong her radiation therapy she recently started for her brain metastasis. Per her Radiation Oncologist, this has progressed quickly and he feels it would be beneficial to get her transferred to [facility] where she could recover from surgery and also receive radiation while inpatient. If she is not able to be transferred this would be put off for almost two weeks. I called the [facility] transfer line and initiated transfer today. They were unable to transfer to [facility], because they would be transferring the patient off campus to [facility] via ambulance daily for the treatment and then back to inpatient at [facility]. The Hospitalist felt this would not be appropriate in the postop setting and she would be better served at [facility] where she could received radiation therapy in-house. Therefore, we attempted transfer to [place] and I spoke with the Oncologist, who agrees with transfer and accepted the patient. Surgery has also accepted the patient in consultation to follow her in the postoperative period. She is now waiting for bed placement. 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 Will start IV steroids given her recent high-dose steroid use for her brain metastasis so that they will not be abruptly stopped. (5) Seizure: Code(s): R56.9 - Unspecified convulsions Status: Chronic Assessment and Plan: Keppra changed to IV (6) Malnutrition: Qualifiers: Malnutrition type: protein-calorie malnutrition Protein-calorie malnutrition severity: mild Qualified Code(s): E44.1 - Mild protein-calorie malnutrition Code(s): E46 - Unspecified protein-calorie malnutrition Status: Acute Assessment and Plan: Dietitian consulted and agreed with TPN. Will access her Port and start TPN today while awaiting transfer. (7) Thrombocytopenia: Code(s): D69.6 - Thrombocytopenia, unspecified Status: Acute Assessment and Plan: Platelets lower again today to 59k. Will repeat labs tomorrow. (8) Anemia: Code(s): D64.9 - Anemia, unspecified Status: Acute Assessment and Plan: Hgb stable (9) Failure to thrive: Status: Acute Plan I have discussed the patient's case and plan of care with Dr. Brandon. Subjective Subjective Date/Time Seen: 06/26/24 14:11 Post Op day: 1 (Oversew perforated duoenal ulcer, omentplasty) Patient reports: feels better, pain is less, no flatus, no bowel movement and afebrile Interval history: Patient with NG tube in place. Reports abdominal pain is better today since surgery. No nausea. Feeling hungry. No other complaints at this time. Exam Const: General: comfortable and no acute distress Orientation/consciousness: patient oriented x3 GI: Inspection: incision (dressing dry and intact) and other (less distended today) GI Palp: Yes Soft to palpation, Yes Tenderness to palpation present (GI) (incisional) and No Guarding due to palpation
[2024-06-26 18:35] LABS: Glucose Point of Care 155 mg/dl (65-105)
[2024-06-26 20:00] VITALS: BP 105/52; PULSE 74; RESP 18; TEMP 36.6; O2SAT 93
[2024-06-27] VITALS (7 sets, daily range): BP systolic 102–129; BP diastolic 48–63; PULSE 69–84; RESP 16–18; TEMP 36.4–36.9; O2SAT 94–97
[2024-06-27] MEDS: PIPERACILLN/TAZ 3.375GM/NS50ML 3.375 GM/50 ML BAG IVPB ×4 (02:35→20:19)
[2024-06-27] MEDS: HYDROCORTISONE SODIUM SUCCINATE 100 MG/2 ML VIAL IV PUSH ×4 (02:35→20:19)
[2024-06-27 02:41] LABS: Glucose Point of Care 197 mg/dl (65-105)
[2024-06-27 06:08] LABS: Glucose Point of Care 169 mg/dl (65-105)
[2024-06-27 06:20] LABS: Hematocrit 26.2 % (37.0-47.0); Hemoglobin 7.9 g/dL (12.0-15.0); Immature Platelet Fraction Pct 10.2 % (0.9-11.2); Mean Corpuscular HGB Conc 30.2 g/dl (32-36); Mean Corpuscular Hemoglobin 27.1 pg (26-34); Mean Corpuscular Volume 89.7 fl (80-100); Platelet Count Result 58 k/mm3 (150-375); Red Blood Count 2.92 M/mm3 (4.2-5.4); White Blood Count 8.5 K/mm3 (4.5-10.0)
[2024-06-27 06:31] LABS: Triglycerides 60 mg/dL (<150)
--- NOTE | 2024-06-27 07:16 | P.PNIM_ITS ---
Progress Note: A&P Assessment and Plan (1) Pneumoperitoneum: Code(s): K66.8 - Other specified disorders of peritoneum Status: Acute (2) Breast cancer metastasized to brain: Code(s): C50.919 - Malignant neoplasm of unspecified site of unspecified female breast; C79.31 - Secondary malignant neoplasm of brain Status: Chronic (3) Anemia: Code(s): D64.9 - Anemia, unspecified Status: Acute (4) Thrombocytopenia: Code(s): D69.6 - Thrombocytopenia, unspecified Status: Acute (5) Malnutrition: Qualifiers: Malnutrition type: protein-calorie malnutrition Protein-calorie malnutrition severity: mild Qualified Code(s): E44.1 - Mild protein-calorie malnutrition Code(s): E46 - Unspecified protein-calorie malnutrition Status: Acute (6) UTI (urinary tract infection): Code(s): N39.0 - Urinary tract infection, site not specified Status: Acute (7) Bacteremia: Code(s): R78.81 - Bacteremia Status: Acute (8) Seizure: Code(s): R56.9 - Unspecified convulsions Status: Chronic (9) Bowel perforation: Code(s): K63.1 - Perforation of intestine (nontraumatic) Status: Acute Plan Pneumoperitoneum/Bowel Perforation * Emergent surgical exploratory laparatomy * secondary to gastric/duodenal ulcer from Chemotherapy/steroid use * Zosyn * Pain control * NPO advance per Surgery * IS ordered * WBC trending down * Antiemetics * Antipyretics * IV fluids * PPI * Accu-Cheks q.6 well NPO * Hypoglycemic protocol * Encourage ambulation Bacteremia * Gram-negative bacilli, Ecoli growing * Zosyn * de-escalate per cultures * Repeated blood cultures today UTI * Leukocyte+ with bacteria * on zosyn * follow cultures Seizures * Keppra IV unitl tolerating oral intake then transition to home Keppra PO * Seizure precautions * Ativan p.r.n. for seizures Metastatic breast and brain cancer * Currently on chemotherapy * follow-up with oncology outpatient Mild malnutrition due to poor protein and caloric intake * Secondary to metastatic cancer * Dietitian consulted * Recommend protein shakes once patient is tolerating oral intake Anemia/thrombocytopenia * HGb stable * PLT 56 * Likely secondary to patient's metastatic cancer and chemotherapy * MCHC low, iron deficiency may be contributing. TIBC and Iron added to am labs * Transfuse PRBC <7.0 * Transfuse PLT <20 * Daily CBC Code status: Full code per patient DVT prophylaxis: SCD's (Anemia/thrombocytopenia) Stress ulcer prophylaxis: Protonix 40 daily PT/OT notes: PT/OT Pending Disposition: Patient admitted to the medical unit with pneumoperitoneum post emergent surgical intervention tolerated procedure well eating ice chips at this time bacteremia with Gram-negative bacilli. Will advance diet per surgery return of bowel function. Patient lives at home with daughter who is her station mechanic helper. PT OT pending for recs patient is deconditioned may need rehab services before returning home. Patient is pending transfer to [facility] as she needs to continue her radiation for her brain tumor. Surgery initiated this transfer and we are awaiting bed placement. Subjective Date/time seen: 06/27/24 07:16 Interval history: Consult: Medical Chart Danitza Anderson is a 53 year old female who presents to the ED with abdominal pain over the past 1 day. Sudden in o
--- NOTE | 2024-06-27 07:16 | PM.IMPN ---
Progress Note: A&P Assessment and Plan (1) Pneumoperitoneum: Code(s): K66.8 - Other specified disorders of peritoneum Status: Acute (2) Breast cancer metastasized to brain: Code(s): C50.919 - Malignant neoplasm of unspecified site of unspecified female breast; C79.31 - Secondary malignant neoplasm of brain Status: Chronic (3) Anemia: Code(s): D64.9 - Anemia, unspecified Status: Acute (4) Thrombocytopenia: Code(s): D69.6 - Thrombocytopenia, unspecified Status: Acute (5) Malnutrition: Qualifiers: Malnutrition type: protein-calorie malnutrition Protein-calorie malnutrition severity: mild Qualified Code(s): E44.1 - Mild protein-calorie malnutrition Code(s): E46 - Unspecified protein-calorie malnutrition Status: Acute (6) UTI (urinary tract infection): Code(s): N39.0 - Urinary tract infection, site not specified Status: Acute (7) Bacteremia: Code(s): R78.81 - Bacteremia Status: Acute (8) Seizure: Code(s): R56.9 - Unspecified convulsions Status: Chronic (9) Bowel perforation: Code(s): K63.1 - Perforation of intestine (nontraumatic) Status: Acute Plan Pneumoperitoneum/Bowel Perforation Emergent surgical exploratory laparatomy secondary to gastric/duodenal ulcer from Chemotherapy/steroid use Zosyn Pain control NPO advance per Surgery IS ordered WBC trending down Antiemetics Antipyretics IV fluids PPI Accu-Cheks q.6 well NPO Hypoglycemic protocol Encourage ambulation Bacteremia Gram-negative bacilli, Ecoli growing Zosyn de-escalate per cultures Repeated blood cultures today UTI Leukocyte+ with bacteria on zosyn follow cultures Seizures Keppra IV unitl tolerating oral intake then transition to home Keppra PO Seizure precautions Ativan p.r.n. for seizures Metastatic breast and brain cancer Currently on chemotherapy follow-up with oncology outpatient Mild malnutrition due to poor protein and caloric intake Secondary to metastatic cancer Dietitian consulted Recommend protein shakes once patient is tolerating oral intake Anemia/thrombocytopenia HGb stable PLT 56 Likely secondary to patient's metastatic cancer and chemotherapy MCHC low, iron deficiency may be contributing. TIBC and Iron added to am labs Transfuse PRBC <7.0 Transfuse PLT <20 Daily CBC Code status: Full code per patient DVT prophylaxis: SCD's (Anemia/thrombocytopenia) Stress ulcer prophylaxis: Protonix 40 daily PT/OT notes: PT/OT Pending Disposition: Patient admitted to the medical unit with pneumoperitoneum post emergent surgical intervention tolerated procedure well eating ice chips at this time bacteremia with Gram-negative bacilli. Will advance diet per surgery return of bowel function. Patient lives at home with daughter who is her bill clerk. PT OT pending for recs patient is deconditioned may need rehab services before returning home. Patient is pending transfer to [facility] as she needs to continue her radiation for her brain tumor. Surgery initiated this transfer and we are awaiting bed placement. Subjective Date/time seen: 06/27/24 07:16 Interval history: Consult: Medical Chart Danitza Anderson is a 53 year old female who presents to the ED with abdominal pain over the past 1 day. Sudden in onset. No nausea vomiting fever chills. Progressively getting worse. Presented to the ED earlier today for evaluation. Laboratory evaluation showed WBC of 15 K hemoglobin of 8.7 hematocrit 27 platelet of 84,000. Lactic normal. Chem panel with total bilirubin of 2.3 mild hyponatremia 132. Chest x-ray revealed bilateral lower lung infiltrate or atelectasis cardiomegaly and right Port-A-Cath tip near superior cavoatrial junction. CT scan of the abdomen pelvis showed pneumoperitoneum compatible with bowel perforation. [place] to be related to perfor
[2024-06-27] MEDS: PANTOPRAZOLE SODIUM IV 40 MG VIAL IV PUSH (08:11)
[2024-06-27] MEDS: levETIRAcetam 1000MG/NACL100ML 1,000 MG/100 ML BAG 400 MG IVPB ×2 (08:38→21:36)
--- NOTE | 2024-06-27 10:00 | PM.PNGS ---
Progress Note: A&P Assessment and Plan (1) Bowel perforation: Code(s): K63.1 - Perforation of intestine (nontraumatic) Status: Acute Assessment and Plan: Found to have a perforated duodenal ulcer s/p oversewing, omentoplasty. Awaiting return of bowel function. Continue NG tube decompression, bowel rest, and TPN. Continue IV antibiotics. (2) Breast cancer metastasized to brain: Code(s): C50.919 - Malignant neoplasm of unspecified site of unspecified female breast; C79.31 - Secondary malignant neoplasm of brain Status: Chronic Assessment and Plan: Accepted at [facility] and awaiting bed placement, which would allow her to have inpatient radiation for her brain metasasis. Discussed with patient. If she becomes stable for discharge prior to getting a bed at [facility], then she would just follow-up with her Radiation Oncologist and continue radiation as an outpatient. (3) Immunosuppression due to drug therapy: Code(s): D84.821 - Immunodeficiency due to drugs; Z79.899 - Other senior living (current) drug therapy Status: Acute (4) Steroid long-term use: Status: Acute Assessment and Plan: Continue IV steroids for now (5) Seizure: Code(s): R56.9 - Unspecified convulsions Status: Chronic Assessment and Plan: Keppra changed to IV. Seizure precautions. No issues. (6) Malnutrition: Qualifiers: Malnutrition type: protein-calorie malnutrition Protein-calorie malnutrition severity: mild Qualified Code(s): E44.1 - Mild protein-calorie malnutrition Code(s): E46 - Unspecified protein-calorie malnutrition Status: Acute Assessment and Plan: Will increase her TPN to 50 mL/hr (7) Thrombocytopenia: Code(s): D69.6 - Thrombocytopenia, unspecified Status: Acute Assessment and Plan: Platelets still 58,000. Monitor labs (8) Anemia: Code(s): D64.9 - Anemia, unspecified Status: Acute Assessment and Plan: Hgb slowly trending down over the last two days, hemoglobin 7.9 today. Repeat labs tomorrow. (9) Failure to thrive: Status: Acute Plan I have discussed the patient's case and plan of care with Dr. Brandon. Subjective Subjective Date/Time Seen: 06/27/24 10:00 Post Op day: 2 (Over sew perforated duodenal ulcer, omentoplasty) Patient reports: no new complaints, voiding w/o difficulty, no flatus, no bowel movement and afebrile Interval history: Patient denies any abdominal pain or nausea. NG still in place. NG noted to have bright red output in the tubing, but canister appears to have clear yellow/light brown output it. NG suction on high continuous suction, which I turned down while at the bedside. Patient has been up to the bedside commode, but no ambulating or getting up to the chair since admission. PT OT ordered yesterday. Patient does report hunger. About an hour after seeing the patient, I returned to the bedside to reassess the NG tube which was no longer bright red drainage in the tubing. More of a clear pink/yellow. Instructed nursing to monitor and call if bleeding returns. Exam Const: General: comfortable and no acute distress Orientation/consciousness: patient oriented x3 GI: Inspection: distended and incision (Dry and sharath intact, no erythema) GI Palp: Yes Soft to palpation, Yes Tenderness to palpation present (GI) (Mild tenderness along the right side of her abdomen), No Guarding due to palpation present (GI), Yes No hepatosplenomegaly present and No Rebound tenderness present Auscultation: Hypoactive bowel sounds present Skin: General skin exam: pallor Extrem: General: no calf tenderness and no edema Objective Data Vital Signs Vital Signs: Vital Signs - 24 hr 06/26/24 12:00 06/26/24 16:00 06/26/24 20:00 Temperature 98.7 F 98.7 F 97.8 F Pulse Rate 77 78 74 Respiratory Rate 18 18 18 Blood Pressure 94/42 L 102/47 L 105/52 L Pulse Oximetry 96 93 93 Oxygen Megan
[2024-06-27 10:33] LABS: Iron 56 ug/dL (37-170)
[2024-06-27 10:46] LABS: Percent Iron Saturation 21 % (20-50)
[2024-06-27 12:07] LABS: Glucose Point of Care 172 mg/dl (65-105)
--- NOTE | 2024-06-27 13:14 | PCPTNOTE ---
Therapist attempted evaluation at 1255 and then patient took a phone call. Therapist checked back a few minutes later and patient was still on the phone, asked if patient would like her to come back later and she nodded.
[2024-06-27] MEDS: FAT EMULSIONS IV 20% 250 ML 20.83 ML IVPB (13:43)
[2024-06-27] MEDS: AMINO ACIDS 5%/D15W/E-LYTES/CA 2,000 ML with MULTIVITAMINS-12 INJ VIAL 1 2.5 ML, MULTIV... 40 ML IV CONT (13:45)
[2024-06-27] MEDS: CENTRAL LINE FLUSH 10 ML IV PUSH (13:47)
[2024-06-27 15:26] LABS: Anion Gap 5 mmol/L (4-12); Blood Urea Nitrogen 25 mg/dL (7-17); Carbon Dioxide 31 mmol/L (22-30); Chloride 102 mmol/L (98-107); Estimated CRCL calculation 92 ml/min; Estimated Glomerular Filt Rate > 60; Glucose 170 mg/dL (65-110); Phosphorus 1.8 mg/dL (2.5-4.5); Sodium 138 mmol/L (137-145)
[2024-06-27] MEDS: KCL 40 MEQ/WATER 100 ML 100 ML 25 ML IVPB (16:05)
[2024-06-27 18:01] LABS: Glucose Point of Care 180 mg/dl (65-105)
[2024-06-28 00:25] VITALS: BP 117/52; PULSE 78; RESP 16; TEMP 36.8; O2SAT 94
[2024-06-28] MEDS: PIPERACILLN/TAZ 3.375GM/NS50ML 3.375 GM/50 ML BAG IVPB ×4 (01:35→19:46)
[2024-06-28] MEDS: HYDROCORTISONE SODIUM SUCCINATE 100 MG/2 ML VIAL IV PUSH ×2 (02:58→09:54)
[2024-06-28 04:03] LABS: Glucose Point of Care 171 mg/dl (65-105)
[2024-06-28 05:55] VITALS: BP 115/53; PULSE 74; RESP 16; TEMP 36.7; O2SAT 94
[2024-06-28 06:50] LABS: Basophils Percent Auto 0.2 % (0.2-1.2); Hematocrit 23.1 % (37.0-47.0); Immature Granulocyte Percent A 1.8 % (0-0.5); Immature Platelet Fraction Pct 10.8 % (0.9-11.2); Lymphocytes Absolute Auto 0.23 K/mm3 (0.9-3.2); Lymphocytes Percent Auto 4.1 % (18.3-44.2); Mean Corpuscular HGB Conc 29.9 g/dl (32-36); Mean Corpuscular Hemoglobin 27.2 pg (26-34); Mean Corpuscular Volume 90.9 fl (80-100); Mean Platelet Volume 14.3 fl (7.4-10.4); Monocytes Absolute Auto 0.3 K/mm3 (0.1-0.6); Monocytes Percent Auto 4.5 % (2.6-8.5); Neutrophils Percent Auto 89.4 % (45.5-73.1); Nucleated Red Blood Cells Perc 0.4 % (0.0-0.2); Platelet Count Result 51 k/mm3 (150-375); Red Blood Count 2.54 M/mm3 (4.2-5.4); Red Cell Distribution Width 19.4 % (11.5-14.5); White Blood Count 5.6 K/mm3 (4.5-10.0)
[2024-06-28 07:03] LABS: Alanine Aminotransferase 21 U/L (6-35); Albumin Level 2.1 g/dL (3.5-5.1); Alkaline Phosphatase 73 U/L (38-126); Anion Gap 3 mmol/L (4-12); Aspartate Amino Transferase 23 U/L (14-36); Bilirubin,Total 1.6 mg/dL (0.2-1.3); Blood Urea Nitrogen 22 mg/dL (7-17); Calcium 7.8 mg/dL (8.4-10.2); Carbon Dioxide 31 mmol/L (22-30); Chloride 103 mmol/L (98-107); Estimated CRCL calculation 113 ml/min; Estimated Glomerular Filt Rate > 60; Glucose 139 mg/dL (65-110); Magnesium 2.1 mg/dL (1.6-2.3); Potassium 3.1 mmol/L (3.4-5.0); Sodium 137 mmol/L (137-145)
[2024-06-28 07:37] LABS: Hemoglobin 6.9 g/dL (12.0-15.0)
[2024-06-28 07:38] LABS: Anisocytosis 1+; Hypochromasia 1+; Ovalocytes 1+; Platelet Estimate Decreased (Adequate); Poikilocytosis 1+; Schistocytes None Seen
--- NOTE | 2024-06-28 07:59 | P.PNIM_ITS ---
Progress Note: A&P Assessment and Plan (1) Pneumoperitoneum: Code(s): K66.8 - Other specified disorders of peritoneum Status: Acute (2) Breast cancer metastasized to brain: Code(s): C50.919 - Malignant neoplasm of unspecified site of unspecified female breast; C79.31 - Secondary malignant neoplasm of brain Status: Chronic (3) Anemia: Code(s): D64.9 - Anemia, unspecified Status: Acute (4) Thrombocytopenia: Code(s): D69.6 - Thrombocytopenia, unspecified Status: Acute (5) Malnutrition: Qualifiers: Malnutrition type: protein-calorie malnutrition Protein-calorie malnutrition severity: mild Qualified Code(s): E44.1 - Mild protein-calorie malnutrition Code(s): E46 - Unspecified protein-calorie malnutrition Status: Acute (6) UTI (urinary tract infection): Code(s): N39.0 - Urinary tract infection, site not specified Status: Acute (7) Bacteremia: Code(s): R78.81 - Bacteremia Status: Acute (8) Seizure: Code(s): R56.9 - Unspecified convulsions Status: Chronic (9) Bowel perforation: Code(s): K63.1 - Perforation of intestine (nontraumatic) Status: Acute Plan Pneumoperitoneum/Bowel Perforation * Emergent surgical exploratory laparatomy * secondary to gastric/duodenal ulcer from Chemotherapy/steroid use * Zosyn * Pain control * NPO advance per Surgery * IS ordered * Leukocytosis resolved * Antiemetics * Antipyretics * TPN * PPI * Accu-Cheks q.6 well NPO * Hypoglycemic protocol * Encourage ambulation Bacteremia * Gram-negative bacilli, E-coli growing * Zosyn * de-escalate per cultures. Cobb sensitive. Can consider de-escalation to Rocephin. Defer to surgery. * Repeated blood cultures 06/28 with NGTD UTI * Leukocyte+ with bacteria * on Zosyn * follow cultures--growing E-coli, pansensitive Seizures * Keppra IV until tolerating oral intake then transition to home Keppra PO * Seizure precautions * Ativan p.r.n. for seizures Metastatic breast and brain cancer * Currently on chemotherapy * follow-up with oncology outpatient * On IV solu-cortef 100 mg every 6 hours Mild malnutrition due to poor protein and caloric intake; Electrolyte imbalance * Secondary to metastatic cancer * Dietitian consulted * Recommend protein shakes once patient is tolerating oral intake * Daily CMP * Potassium 3.1 meq, Phosphorus 2.0, Mag 2.1. Potassium phosphorus 40 millimoles x1 Anemia/thrombocytopenia * HGb stable * PLT 56 * Likely secondary to patient's metastatic cancer and chemotherapy * MCHC low, iron deficiency may be contributing. TIBC and Iron added to am labs * Transfuse PRBC <7.0 * Transfuse PLT <20 * Daily CBC * Hgb 6.9 g/dL today, transfuse 1 unit of pRBC---may end up declining Code status: Full code per patient DVT prophylaxis: SCD's (Anemia/thrombocytopenia) Stress ulcer prophylaxis: Protonix 40 daily PT/OT notes: PT/OT Pending Disposition: Patient admitted to the medical unit with pneumoperitoneum post emergent surgical intervention tolerated procedure well eating ice chips at this time bacteremia with Gram-negative bacilli. Will advance diet per surgery return of bowel function. Patient lives at home with daughter who is her therapy technician. PT OT pending for recs patient is deconditioned may need rehab services before returning home. Patient is pending transfer to [facility] as she needs to continue her ra
--- NOTE | 2024-06-28 07:59 | PM.IMPN ---
Progress Note: A&P Assessment and Plan (1) Pneumoperitoneum: Code(s): K66.8 - Other specified disorders of peritoneum Status: Acute (2) Breast cancer metastasized to brain: Code(s): C50.919 - Malignant neoplasm of unspecified site of unspecified female breast; C79.31 - Secondary malignant neoplasm of brain Status: Chronic (3) Anemia: Code(s): D64.9 - Anemia, unspecified Status: Acute (4) Thrombocytopenia: Code(s): D69.6 - Thrombocytopenia, unspecified Status: Acute (5) Malnutrition: Qualifiers: Malnutrition type: protein-calorie malnutrition Protein-calorie malnutrition severity: mild Qualified Code(s): E44.1 - Mild protein-calorie malnutrition Code(s): E46 - Unspecified protein-calorie malnutrition Status: Acute (6) UTI (urinary tract infection): Code(s): N39.0 - Urinary tract infection, site not specified Status: Acute (7) Bacteremia: Code(s): R78.81 - Bacteremia Status: Acute (8) Seizure: Code(s): R56.9 - Unspecified convulsions Status: Chronic (9) Bowel perforation: Code(s): K63.1 - Perforation of intestine (nontraumatic) Status: Acute Plan Pneumoperitoneum/Bowel Perforation Emergent surgical exploratory laparatomy secondary to gastric/duodenal ulcer from Chemotherapy/steroid use Zosyn Pain control NPO advance per Surgery IS ordered Leukocytosis resolved Antiemetics Antipyretics TPN PPI Accu-Cheks q.6 well NPO Hypoglycemic protocol Encourage ambulation Bacteremia Gram-negative bacilli, E-coli growing Zosyn de-escalate per cultures. Cobb sensitive. Can consider de-escalation to Rocephin. Defer to surgery. Repeated blood cultures 06/28 with NGTD UTI Leukocyte+ with bacteria on Zosyn follow cultures--growing E-coli, pansensitive Seizures Keppra IV until tolerating oral intake then transition to home Keppra PO Seizure precautions Ativan p.r.n. for seizures Metastatic breast and brain cancer Currently on chemotherapy follow-up with oncology outpatient On IV solu-cortef 100 mg every 6 hours Mild malnutrition due to poor protein and caloric intake; Electrolyte imbalance Secondary to metastatic cancer Dietitian consulted Recommend protein shakes once patient is tolerating oral intake Daily CMP Potassium 3.1 meq, Phosphorus 2.0, Mag 2.1. Potassium phosphorus 40 millimoles x1 Anemia/thrombocytopenia HGb stable PLT 56 Likely secondary to patient's metastatic cancer and chemotherapy MCHC low, iron deficiency may be contributing. TIBC and Iron added to am labs Transfuse PRBC <7.0 Transfuse PLT <20 Daily CBC Hgb 6.9 g/dL today, transfuse 1 unit of pRBC---may end up declining Code status: Full code per patient DVT prophylaxis: SCD's (Anemia/thrombocytopenia) Stress ulcer prophylaxis: Protonix 40 daily PT/OT notes: PT/OT Pending Disposition: Patient admitted to the medical unit with pneumoperitoneum post emergent surgical intervention tolerated procedure well eating ice chips at this time bacteremia with Gram-negative bacilli. Will advance diet per surgery return of bowel function. Patient lives at home with daughter who is her owner spa director. PT OT pending for recs patient is deconditioned may need rehab services before returning home. Patient is pending transfer to [facility] as she needs to continue her radiation for her brain tumor. Surgery initiated this transfer and we are awaiting bed placement. Subjective Date/time seen: 06/28/24 07:59 Interval history: Consult: Medical Chart Danitza Anderson is a 53 year old female who presents to the ED with abdominal pain over the past 1 day. Sudden in onset. No nausea vomiting fever chills. Progressively getting worse. Presented to the ED earlier today for evaluation. Laboratory evaluation showed WBC of 15 K hemoglobin of 8.7 hematocrit 27 platelet of 84,
[2024-06-28] MEDS: PANTOPRAZOLE SODIUM IV 40 MG VIAL IV PUSH (09:54)
[2024-06-28] MEDS: levETIRAcetam 1000MG/NACL100ML 1,000 MG/100 ML BAG 400 MG IVPB ×2 (09:54→20:27)
[2024-06-28 09:55] VITALS: BP 114/61; PULSE 85; RESP 16; TEMP 36.5; O2SAT 98
[2024-06-28 10:02] LABS: Glucose Point of Care 143 mg/dl (65-105)
[2024-06-28] MEDS: POTASSIUM PHOS,M-BASIC-D-BASIC 40 MMOL in SODIUM CHLORIDE 0.9% IV 250 ML 43.89 MMOL IVPB (10:13)
--- NOTE | 2024-06-28 10:18 | PC.NURSE ---
Per pharmacy, okay to run IV keppra and Zosyn through y-site on port with TPN running. Patient ordered to receive 1 unit PRBC, but is not sure if she will consent to transfusion due to not wanting to risk receiving blood containing covid-19 vaccine. Provider aware and following
[2024-06-28 12:10] LABS: Glucose Point of Care 150 mg/dl (65-105)
[2024-06-28] MEDS: AMINO ACIDS 5%/D15W/E-LYTES/CA 2,000 ML with MULTIVITAMINS-12 INJ VIAL 1 2.5 ML, MULTIV... 50 ML IV CONT (13:39)
[2024-06-28] MEDS: FAT EMULSIONS IV 20% 250 ML 20.83 ML IVPB (13:40)
[2024-06-28] MEDS: CENTRAL LINE FLUSH 10 ML IV PUSH ×2 (13:40→20:29)
--- NOTE | 2024-06-28 14:44 | PM.PNGS ---
Progress Note: A&P Assessment and Plan (1) Bowel perforation: Code(s): K63.1 - Perforation of intestine (nontraumatic) Status: Acute Assessment and Plan: Found to have a perforated duodenal ulcer s/p oversewing, omentoplasty. Passing flatus and better bowel sounds today. Will remove her NG tube and start clear liquids. Continue TPN for now. Continue IV antibiotics. (2) Breast cancer metastasized to brain: Code(s): C50.919 - Malignant neoplasm of unspecified site of unspecified female breast; C79.31 - Secondary malignant neoplasm of brain Status: Chronic Assessment and Plan: Accepted at [facility] and awaiting bed placement where she could continue her radiation treatment while inpatient. Would plan to just continue outpatient therapy if she discharges before a bed becomes available. (3) Immunosuppression due to drug therapy: Code(s): D84.821 - Immunodeficiency due to drugs; Z79.899 - Other assisted (current) drug therapy Status: Acute (4) Steroid long-term use: Status: Acute Assessment and Plan: Continue IV steroids (5) Bacteremia: Code(s): R78.81 - Bacteremia Status: Acute Assessment and Plan: 2 sets of blood cultures from 06/25 growing E.coli with 2/4 having sensitivities resulted. Urine culture also growing E coli with sensitivities back. I discussed with ID pharmacist who was recommending narrowing antibiotics to IV Rocephin 2 grams daily. (6) Seizure: Code(s): R56.9 - Unspecified convulsions Status: Chronic Assessment and Plan: Continue IV Keppra. Seizure precautions. No issues. (7) Malnutrition: Qualifiers: Malnutrition type: protein-calorie malnutrition Protein-calorie malnutrition severity: mild Qualified Code(s): E44.1 - Mild protein-calorie malnutrition Code(s): E46 - Unspecified protein-calorie malnutrition Status: Acute Assessment and Plan: Will continue TPN today (8) Thrombocytopenia: Code(s): D69.6 - Thrombocytopenia, unspecified Status: Acute Assessment and Plan: Platelets 51,000. Monitor labs (9) Anemia: Code(s): D64.9 - Anemia, unspecified Status: Acute Assessment and Plan: Hgb slowly trending down over the last two days, hemoglobin 6.9 today. 1 unit PRBCs ordered today by Hospitalist. Trend labs. (10) Failure to thrive: Status: Acute (11) UTI (urinary tract infection): Code(s): N39.0 - Urinary tract infection, site not specified Status: Acute Assessment and Plan: Urine culture growing E.coli and sensitivities resulted. Continue IV antibiotics. Plan I have discussed the patient's case and plan of care with Dr. Brandon. Subjective Subjective Date/Time Seen: 06/28/24 14:44 Post Op day: 3 (Oversew perforated duodenal ulcer, omentoplasty) Patient reports: no new complaints, feels better, flatus, no bowel movement and afebrile Interval history: Patient seen today. Her only complaint is feeling cold today. Denies abdominal pain or nausea. Hgb 6.9 and 1 unit PRBCs ordered by Hospitalist. She reports flatus. She is eager to try oral intake. Exam Const: General: comfortable and no acute distress Nutritional Appearance: malnourished and thin Orientation/consciousness: patient oriented x3 GI: Inspection: incision (Dry and sharath intact, no erythema) and other (less distended today) GI Palp: Yes Soft to palpation, No Tenderness to palpation present (GI), No Guarding due to palpation present (GI) and No Rebound tenderness present Auscultation: normal bowel sounds Extrem: General: no calf tenderness and no edema Objective Data Vital Signs Vital Signs: Vital Signs - 24 hr 06/27/24 16:00 06/27/24 20:00 06/27/24 20:00 Temperature 97.9 F 97.5 F L Pulse Rate 79 84 Respiratory Rate 16 16 Blood Pressure 107/57 L 129/63 Pulse Oximetry 94 94 Oxygen Delivery Room Air 06/28/24 00:25
--- NOTE | 2024-06-28 15:03 | PC.NURSE ---
Patient still unsure about receiving unit of blood. Roz Yin spoke with/educated patient. Patient still wanting to hold off for now until she looks into it further . Following
[2024-06-28 16:27] VITALS: BP 116/59; PULSE 85; RESP 16; TEMP 36.4; O2SAT 99
--- NOTE | 2024-06-28 18:07 | PM.TDS ---
Transfer Discharge Sum: Prov Provider Date of admission: 06/25/24 10:36 Primary care physician: Elvis Reza, Admitting clinician: Mansoor Brandon MD Attending physician on admission: Mansoor Brandon Consults: 06/25/24 Consult to Physician Routine Comment: called Dr Wei with consult information Consulting Provider: Gamal Biggs district scout executive/MD group to consult: Hospitalist Reason for consultation: postop medical management, hx seizures, metastatic breast cancer Has provider been notified: Yes 06/25/24 15:59 Consult to Dietitian Routine Reason for Consult:: Nutritional options postoperatively. 06/26/24 11:48 Consult to Dietitian Routine Reason for Consult:: TPN Attending physician on discharge: Mansoor Brandon Discharging clinician: Mansoor Brandon Anticipated date of transfer: 06/28/24 Receiving physician/facility: [facility] DS: Admitting Diagnosis Discharge Date 06/28/24 Admitting Diagnosis Perforated bowel metastatic breast cancer intracranial metastases immunosuppression due to drug therapy long-term steroid use seizures protein calorie malnutrition DS: Discharge Diagnosis Discharge Diagnosis (1) Duodenal ulcer with perforation: Code(s): K26.5 - Chronic or unspecified duodenal ulcer with perforation Status: Acute Assessment and Plan: oversewn with omental plasty per Dr. Brandon on 06/25/2024. NG tube removed on postop day 3. Patient had small bowel movement and is tolerating clear liquids fair. (2) Bacteremia: Code(s): R78.81 - Bacteremia Status: Acute Assessment and Plan: for blood cultures positive for E coli sensitive to all antibiotics tested. Same E coli spectrum positive on urinary tract cultures. (3) UTI (urinary tract infection): Qualifiers: Urinary tract infection type: acute cystitis Hematuria presence: without hematuria Qualified Code(s): N30.00 - Acute cystitis without hematuria Code(s): N39.0 - Urinary tract infection, site not specified Status: Acute Assessment and Plan: E coli UTI -same antibiotic sensitivity as the E coli from the for positive blood cultures. (4) Breast cancer metastasized to brain: Code(s): C50.919 - Malignant neoplasm of unspecified site of unspecified female breast; C79.31 - Secondary malignant neoplasm of brain Status: Chronic Assessment and Plan: Transferred now to [facility] to hopefully minimize the delay in continuing radiation therapy for intracranial metastases. (5) Seizure: Code(s): R56.9 - Unspecified convulsions Status: Chronic Assessment and Plan: No seizures, maintained on Keppra. (6) Immunosuppression due to drug therapy: Code(s): D84.821 - Immunodeficiency due to drugs; Z79.899 - Other intermediate frame tender (current) drug therapy Status: Acute Assessment and Plan: Chemotherapy and steroid treatment (7) Steroid long-term use: Status: Acute Assessment and Plan: receiving dexamethasone prior to admission. Maintained on IV Solu-Cortef while admitted. (8) Malnutrition: Qualifiers: Malnutrition type: protein-calorie malnutrition Protein-calorie malnutrition severity: mild Qualified Code(s): E44.1 - Mild protein-calorie malnutrition Code(s): E46 - Unspecified protein-calorie malnutrition Status: Acute Assessment and Plan: Patient started on TPN after surgery via her Port-A-Cath. Nasogastric tube removed on 06/28/2024 and started on clear liquids. This is postop day 3. Transfer Discharge Sum: Med Medications Active and Home Medications: Home Medications carvedilol 3.125 mg tablet 3.125 mg PO BID 06/25/24 [History Confirmed 06/25/24] cholecalciferol (vitamin D3) 125 mcg (5,000 unit) capsule 125 mcg PO DAILY 06/25/24 [History Confirmed 06/25/24] levetiracetam 500 mg tablet 1,000 mg PO BID 06/25/24 [Histor
--- NOTE | 2024-06-28 18:33 | PC.NURSE ---
Atempted to call nurse at [facility] for transfer at [phone], was told the nurse would call back for report. 2nd medical nurses station number provided
[2024-06-28 18:43] VITALS: BP 112/54; PULSE 78; RESP 16; TEMP 36.4; O2SAT 97
--- NOTE | 2024-06-28 18:53 | PC.NURSE ---
Report given to ROLAND Zarate at [facility]. Patient to be transferred from Room 242 to Room [id number] at [facility].
[2024-06-28 18:54] LABS: Glucose Point of Care 176 mg/dl (65-105)
[2024-06-28 19:28] VITALS: BP 121/61; PULSE 78; RESP 18; TEMP 36.6; O2SAT 96
== END 2024-06-28 21:50 | disposition short-term general hospital (02) | DRG 327 ==
LOC: ANHED 06-25 01:58 → ANHIMU 06-25 03:02 → ANH2MED 06-25 22:49
PROVIDERS: Anesthesiology; Nurse Practitioner Family; Admitting Provider Surgery; Emergency Provider Emergency Medicine; PCP Family Medicine; Visit Provider Nurse Practitioner Acute Care
PROC: 0DQ90ZZ Repair Duodenum, Open Approach (ICD-10-PCS; CPT 49000; principal; 2024-06-25 12:30)
DX: K26.5 Chronic or unspecified duodenal ulcer with perforation (principal); C78.7 Secondary malignant neoplasm of liver and intrahepatic bile duct; C79.31 Secondary malignant neoplasm of brain; E44.1 Mild protein-calorie malnutrition; Z68.1 Body mass index [BMI] 19.9 or less, adult; D84.821 Immunodeficiency due to drugs; R78.81 Bacteremia; N39.0 Urinary tract infection, site not specified; E87.1 Hypo-osmolality and hyponatremia; B96.20 Unspecified Escherichia coli [E. coli] as the cause of diseases classified elsewhere; C50.919 Malignant neoplasm of unspecified site of unspecified female breast; K66.8 Other specified disorders of peritoneum; D63.0 Anemia in neoplastic disease; R56.9 Unspecified convulsions; R62.7 Adult failure to thrive; D69.59 Other secondary thrombocytopenia; T45.1X5A Adverse effect of antineoplastic and immunosuppressive drugs, initial encounter; Z79.899 Other long term (current) drug therapy
CPT/HCPCS: 36415; 71045; 74177; 80048; 80053; 81001; 82948; 83540; 83550; 83605; 83690; 83735; 84100; 84134; 84145; 84466; 84478; 84484; 84702; 85025; 85027; 85055; 85610; 85730; 86850; 86900; 86901; 86923; 87040; 87077; 87086; 87088; 87186; 93005; 96361; 96365; 96375; 97161; 97166; 99285; G0378; J1170; J1720; J1953; J2250; J2270; J2405; J2470; J2543; J2704; J3010; J3480; J7030; J7050; J7120; Q9967